=== PATIENT | male | born 2005 | race Caucasian/White ===

== ENCOUNTER 2023-11-13 01:56 | Emergency (ER) | payer SELFPAY ==
[~2023-11-13] VITALS: Ht 185.4 cm; Wt 68.2 kg
[2023-11-13 02:05] VITALS: TEMP 98.4
[2023-11-13] MEDS ORDERED: predniSONE 20 MG TAB PO ONE (02:30)
[2023-11-13] MEDS ORDERED: Famotidine 20 MG TAB PO ONE (02:30)
[2023-11-13] MEDS ORDERED: diphenhydrAMINE 25 MG CAP PO ONE (02:30)
[2023-11-13] MEDS ORDERED: PREDNISONE20 MG PO ×2 (03:05→16:42)
[2023-11-13 03:11] VITALS: BP 103/78; PULSE 101
== END 2023-11-13 03:13 | disposition home or self-care (01) ==
LOC: COL.ER 01:56
DX: L23.9 Allergic contact dermatitis, unspecified cause (principal); F17.290 Nicotine dependence, other tobacco product, uncomplicated
CPT/HCPCS: J7512